=== PATIENT | female | born 1990 | race Two or more races ===

== ENCOUNTER 2018-09-07 11:58 | Emergency (ER) | payer MEDICAID ==
[~2018-09-07] VITALS: Ht 157.5 cm; Wt 67.1 kg
[2018-09-07 12:02] VITALS: BP 121/68
--- NOTE | 2018-09-07 12:08 | NUR ---
Frida mcgee in ED - 09/07/18 at 1214 by ELVIRA Short Arm Sling applied by Tio. For discharge- After care Instructions given verbalized understanding. Home ambulatory Stable
[2018-09-07] MEDS ORDERED: IBUPROFEN 600 MG TABLET PO ONE ×2 (12:49→13:00)
--- NOTE | 2018-09-07 13:30 | NUR ---
For Discharge- Aftercare Instructions given Verbalized understanding Home ambulatory- Stable
== END 2018-09-07 14:15 | disposition home or self-care (01) ==
LOC: ER 12:08
DX: M79.601 Pain in right arm (principal)